=== PATIENT | female | born 1950 | race Caucasian/White ===

== ENCOUNTER 2020-11-10 05:36 | Day surgery (SDC) | payer MEDICARE ==
[2020-11-03 15:11] VITALS: BMI 25.1
[~2020-11-10 05:36] MED LIST: ACETAMINOPHEN TAB 500 MG TAB PO PRN; GABAPENTIN 300 MG CAP PO PRN; MELOXICAM 7.5 MG TAB PO PRN; TRANEXAMIC ACID 1,000 MG in SODIUM CHLORIDE 0.9% 100 ML IVPB PRN
[2020-11-10] MEDS ORDERED: DEXAMETHASONE SOD PHOSPHATE 4 MG/ML 1 ML VIAL IV ONE (06:01)
[2020-11-10] MEDS ORDERED: ONDANSETRON 4 MG/2 ML VIAL IVP ONE (06:01)
[2020-11-10] MEDS: LACTATED RINGERS 1,000 ML IV SCH (06:47)
[2020-11-10] MEDS ORDERED: fentaNYL (PF) 50 MCG/ML 2 ML AMP ONE (06:58)
[2020-11-10] MEDS ORDERED: LIDOCAINE 1% INJ 10MG/ML (20 ML MDV) ONE (06:58)
[2020-11-10] MEDS ORDERED: HEPARIN SODIUM,PORCINE 10,000 UNIT/ML 1 ML VIAL ONE (06:58)
[2020-11-10] MEDS ORDERED: HYDROmorphone (PF) 1 MG/ML ONE (06:58)
[2020-11-10] MEDS ORDERED: SUCCINYLCHOLINE CHLORIDE 100 MG/5 ML SYR IV ONE (06:58)
[2020-11-10] MEDS ORDERED: ONDANSETRON 4 MG/2 ML VIAL ONE (06:58)
[2020-11-10] MEDS ORDERED: SODIUM CHLORIDE 0.9% IRRIG 1,000 ML BTL IRRIGATION ONE (06:58)
[2020-11-10] MEDS ORDERED: MIDAZOLAM 2 MG/2 ML VIAL ONE (06:58)
[2020-11-10] MEDS ORDERED: PROPOFOL 10 MG/ML 20 ML VIAL IV ONE (06:58)
[2020-11-10] MEDS ORDERED: TRANEXAMIC ACID 1,000 MG/10 ML VIAL ONE (06:58)
[2020-11-10] MEDS ORDERED: SODIUM CHLORIDE 0.9% 100 ML BAG ONE (06:58)
[2020-11-10] MEDS ORDERED: HYDROmorphone 0.2 MG/1 ML SYRINGE IVP PRN (07:08)
[2020-11-10] MEDS ORDERED: NALOXONE 0.4 MG/ML 1 ML VIAL IV PRN (07:08)
[2020-11-10] MEDS ORDERED: HYDROmorphone 0.5 MG/0.5 ML SYRINGE IVP PRN ×2 (07:08)
[2020-11-10] MEDS ORDERED: MAGNESIUM HYDROXIDE 2,400 MG/10 ML CUP PO PRN (07:08)
[2020-11-10] MEDS ORDERED: ceFAZolin 3,000 MG in SODIUM CHLORIDE 0.9% IRRIGATIO 3,000 ML IRRIGATION ONE (07:15)
[2020-11-10] MEDS: ROPIVACAINE/EPI/CLONIDINE/KET 50 ML SYRINGE MISCELLANE PRN ×2 (07:27→08:11)
--- NOTE | 2020-11-10 08:34 | P.OP ---
Date of Procedure: 11/10/20 Preoperative Diagnosis: Severe osteoarthritis left hip Postoperative Diagnosis: Severe osteoarthritis left hip Procedure(s) Performed: Left total hip arthroplasty with a direct anterior approach Implants: [employer] Polarstem standard size 4 [employer] R3, 3 hole hemispherical acetabular shell, 52 mm [employer] Reflection 6.5 mm cancellus screw, 20 mm 2 [employer] R3, XLPE 20 acetabular liner [employer]hew Oxinium femoral head 36 m, +0 All components were press-fit. The articulation is Oxinium on polyethylene. Anesthesia: GETA Surgeon: Biju Pérez Fruit Grader Operator #1: Krys Welsh Estimated Blood Loss (ml): 200 (93 mL turn with Cell Saver) Pathology: other (Femoral head) Condition: stable Disposition: PACU Indications for Procedure: After failure of conservative treatment we discussed the surgical and nonsurgical treatment options at length. Patient wishes to proceed with a total hip arthroplasty with a direct anterior approach. Complications specific to this procedure were discussed at length, including but not limited to infection, leg length discrepancy, dislocation, nerve injury, and fracture. Covid-19 was also discussed at length with the patient, and they are aware of the current policies and procedures. The patient was given the option of delaying surgery, but they elect to proceed knowing these risks. Patient is aware of all these complications and informed consent was obtained Operative Findings: The operative findings are consistent with severe osteoarthritis of the left hip Description of Procedure: Patient was seen and evaluated in the preoperative area and the consent was reviewed. The operative site was marked with a skin marker. The patient was then brought to the operating room and given preoperative antibiotics intravenously. 1 g of Tranexamic acid was also given intravenously. A general anesthetic was administered by the anesthesia department. The patient was then placed on the [place] table with the bony prominences well-padded. The hip area was then prepped with a ChloraPrep solution and draped in the usual sterile fashion. A universal timeout was then performed, which confirmed the patient's name, surgical site, ALLERGIES, and procedure being performed on the consent. Next the incision site was located at 1 cm distal to the anterior superior iliac spine along the flexion crease of the hip. The skin and subcutaneous tissues were sharply incised. Incision was carefully dissected down to the fascia overlying the tensor fascia angela muscle. This fascia was then incised in line with the incision. Care was taken to stay laterally in order to avoid injuring the lateral femoral cutaneous nerve. Next, using blunt finger dissection, the tensor fascia angela muscle was dissected off its investing fascia. The muscle was then carefully retracted laterally with a cobra retractor over the lateral neck of the femur. Next, the circumflex vessels were identified and cauterized using the AquaMantis device. The anterior hip capsule was then exposed. The capsule was then opened and an inverted T fashion. Cobra retractors were then placed intracapsularly. The retractors were maintained intracapsular throughout the procedure. The proximal femur was then visualized. A small amount of traction was placed on the leg. The femoral neck was then osteotomized appropriate level above the lesser trochanter. A small wedge of bone was then removed from the remaining femoral head. Next, using a corkscrew the femoral head was removed from the acetabulum. On gross visual inspection, the femoral head had complete loss of articular cartilage and multiple periarticular osteophytes. The femoral head was then measured. Attention was then turned to the acetabulum. The acetabulum was exposed and any remaining labrum was excised. Sequential reaming of the acetabulum was performed using fluoroscopic guidance until there was a good bed of bleeding cancellus bone. When the appropriate size was reached, a trial was then placed. The position and fit of the trial was checked with fluoroscopy. The trial was then removed. Then, using fluoroscopic guidance, the final implant was impacted at 20 of anteversion and 40 of abduction, and fully seated in the acetabulum. 2 screws were then placed in the acetabulum. Again fluoroscopy was used to check position of the screws. Next, the liner was then impacted, with a 20 elevated liner located in the anterior superior quadrant. Component locking was confirmed. Attention was then directed to the femur. With the aid of the [place] table, the femur was externally rotated to approximately 130, extended, and adducted under the opposite leg. A side hook was then placed under the proximal femur, and the side hook elevator was used to elevate the proximal femur while releasing the capsule. Retractors were then placed. A capsular release was performed, as well as a release of the conjoined tendon, which afforded excellent visualization of the proximal femur. Next, a box osteotome was used to lateralize the proximal femur. A clearing hand was then used to locate the femoral canal. Sequential broaching was then performed with appropriate size which afforded excellent fixation in the proximal femur. A trial was then placed with appropriate head and neck, and the hip was gently reduced with the aid of the [place] table. Fluoroscopy was then used to check position of the components, as well as to ensure equal leg lengths. The hip was then gently dislocated and the trials were then removed. Final implants were then impacted and the hip was again reduced. Final fluoroscopic x-rays confirmed that the components were in anatomic position, as well as equal leg lengths. The hip was also taken through range of motion, and found to be stable. The hip was then copiously irrigated with antibiotic solution with pulsatile lavage. The hip was then irrigated with Irrisept solution. The soft tissues were then injected with a ropivacaine solution, which consisted of 246.25 mg of ropivacaine, 0.5 mg of epinephrine, 30 mg of Toradol, 80 g of clonidine, and 48.45 mL of sterile water, for a total of 100 mL of fluid injected. A second dose of 1 g of Tranexamic acid was also given intravenously. Any blood collected by Cell Saver was then returned to the patient at this time. The fascia was then closed with 2-0 strata fix suture. The subcutaneous tissue was closed with 3-0 Vicryl. The subcuticular tissue was closed with 3-0 strata fix suture. The skin was then closed with Exofin skin glue. After the glue and dried, and Optifoam silver impregnated dressing was applied. The patient was then transferred to the recovery room in stable condition. The operator assistant i cementing MANUELITO Mcrae was required due to the complexity of surgery, and the need for skilled real estate administrative assistant for positioning, draping, exposure, retraction, and closure of the wound.
--- NOTE | 2020-11-10 08:40 | FL ---
EXAMINATION TYPE: FL guidance operating room DATE OF EXAM: 11/10/2020 HISTORY: Fluoroscopy time 18 seconds of fluoroscopy provided. IMPRESSION: 1. Fluoroscopy time.
[2020-11-10] MEDS: HYDROmorphone 0.5 MG/0.5 ML SYRINGE IVP PRN ×2 (08:47→08:54)
[2020-11-10] MEDS ORDERED: HYDROcodone/APAP 7.5-325MG 1 EACH TAB PO PRN (08:47)
[2020-11-10] MEDS: fentaNYL (PF) 50 MCG/ML 2 ML AMP IVP ONE ×2 (09:05→09:11)
--- NOTE | 2020-11-10 09:43 | XR ---
EXAMINATION TYPE: XR Hip Limited LT DATE OF EXAM: 11/10/2020 COMPARISON: NONE HISTORY: Postop TECHNIQUE: One view submitted. FINDINGS: There is postsurgical change in near anatomic alignment. There is soft tissue edema and emphysema. H ypertrophic change of the acetabulum. IMPRESSION: 1. Postoperative change. Appears in near-anatomic alignment.
[2020-11-10] MEDS ORDERED: LACTATED RINGERS 1,000 ML IV ONE (13:53)
[2020-11-10] MEDS: ONDANSETRON 4 MG/2 ML VIAL IVP PRN (15:25)
--- NOTE | 2020-11-10 16:02 | P.PN ---
Progress Note - Text Progress Note Date: 11/10/20 Patient refused to be seen by me. She said that she does not think that a medicine consult is necessary. She said that she does not want to billed for services that she does not need.. I informed nursing staff and asked him to notify attending physician.
[2020-11-10] MEDS: SODIUM CHLORIDE 0.9% 1,000 ML IV SCH ×2 (19:09→19:56)
[2020-11-10] MEDS: ASPIRIN 325 MG TAB PO SCH (19:55)
[2020-11-10] MEDS ORDERED: SENNOSIDES-DOCUSATE SODIUM 1 EACH TAB PO SCH (21:00)
[2020-11-11] MEDS: ONDANSETRON 4 MG/2 ML VIAL IVP PRN (00:50)
[2020-11-11] MEDS: HYDROcodone/APAP 7.5-325MG 1 EACH TAB PO PRN ×2 (00:53→07:30)
[2020-11-11] MEDS: LACTATED RINGERS 1,000 ML IV SCH (04:19)
[2020-11-11] MEDS: ASPIRIN 325 MG TAB PO SCH (07:29)
[2020-11-11] MEDS ORDERED: PANTOPRAZOLE 40 MG TABLET PO SCH (07:30)
[2020-11-11 08:16] VITALS: BP 95/60; RESP 18; TEMP 97.4
[2020-11-11] MEDS ORDERED: MELOXICAM 7.5 MG TAB PO SCH (09:00)
--- NOTE | 2020-11-11 09:23 | P.DS ---
Providers Expected date of discharge: 11/11/20 Attending physician: Biju Pérez Primary care physician: Stated None - Discharge Diagnosis(es) (1) Osteoarthritis of left hip Current Visit: Yes Status: Acute (2) Status post total hip replacement, left Current Visit: Yes Status: Acute Hospital Course: This is a 70-year-old female with known history of degenerative arthritis of the left hip. The patient presented for evaluation as an outpatient. After discussion and consideration patient elects to proceed with total hip arthroplasty. The patient is seen preoperatively by Dr. Pérez and medically cleared for surgery by their primary care physician. Patient is admitted to [facility] on 11/10/2020 for total hip arthroplasty. The procedure is performed without complication or sequelae. The patient is doing well postoperatively. Labs and vital signs are stable on day of discharge. On day of discharge patient's hip incision is healing well. There is minimal erythema. There is no drainage noted at this time. There is minimal soft tissue swelling to the hip and thigh. Patient has full foot and ankle motion without difficulty or pain. Calf is soft and nontender to palpation. Neurovascular status to the left lower extremity is intact. Patient is discharged home in good condition. Opioid start talking form is reviewed and signed. Please see med rec for accurate list of home medications. Plan - Discharge Summary Discharge Rx Participant: Yes New Discharge Prescriptions: New Aspirin 325 mg PO BID #60 tab Gabapentin 300 mg PO BID 5 Days #10 cap Sennosides [Senokot] 2 tab PO DAILY PRN #60 tablet PRN Reason: Constipation Celecoxib [CeleBREX] 200 mg PO DAILY 5 Days #5 capsule HYDROcodone/APAP 7.5-325MG [[place] 7.5-325] 1 - 2 tab PO Q6H PRN #32 tab PRN Reason: Pain Ondansetron Odt [Zofran Odt] 1 tab PO Q8HR PRN #10 tab PRN Reason: Nausea No Action Meloxicam [Mobic] 7.5 mg PO DAILY Acetaminophen [Tylenol Arthritis] 650 mg PO DIRECTED PRN PRN Reason: Pain Multivitamins, Thera [Multivitamin (formulary)] 1 tab PO DAILY Glucos Sul 2Kcl/MSM/Chond/C/Mn [Glucosamine Chondroitin Cap] 1 each PO DAILY Cannabidiol (Cbd) [Epidiolex] 1 dose PO DIRECTED Omeprazole 20 mg PO AC-BRKFST Ginkgo Biloba (Unknown Dose) 1 tab PO DAILY Calcium 1 tab PO DAILY Antibiotic For Uti 1 dose PO DIRECTED Discharge Medication List Acetaminophen [Tylenol Arthritis] 650 mg PO DIRECTED PRN 11/03/20 [History] Calcium 1 tab PO DAILY 11/03/20 [History] Cannabidiol (Cbd) [Epidiolex] 1 dose PO DIRECTED 11/03/20 [History] Ginkgo Biloba (Unknown Dose) 1 tab PO DAILY 11/03/20 [History] Glucos Sul 2Kcl/MSM/Chond/C/Mn [Glucosamine Chondroitin Cap] 1 each PO DAILY 11/03/20 [History] Meloxicam [Mobic] 7.5 mg PO DAILY 11/03/20 [History] Multivitamins, Thera [Multivitamin (formulary)] 1 tab PO DAILY 11/03/20 [History] Omeprazole 20 mg PO AC-BRKFST 11/03/20 [History] Antibiotic For Uti 1 dose PO DIRECTED 11/06/20 [History] Aspirin 325 mg PO BID #60 tab 11/10/20 [Rx] Celecoxib [CeleBREX] 200 mg PO DAILY 5 Days #5 capsule 11/10/20 [Rx] Gabapentin 300 mg PO BID 5 Days #10 cap 11/10/20 [Rx] HYDROcodone/APAP 7.5-325MG [[place] 7.5-325] 1 - 2 tab PO Q6H PRN #32 tab 11/10/20 [Rx] Ondansetron Odt [Zofran Odt] 1 tab PO Q8HR PRN #10 tab 11/10/20 [Rx] Sennosides [Senokot] 2 tab PO DAILY PRN #60 tablet 11/10/20 [Rx] Follow up Appointment(s)/Referral(s): Biju Pérez DO [Doctor of Osteopathic Medicine] - 2 Weeks Activity/Diet/Wound Care/Special Instructions: Weightbearing as tolerated with walker. Leave dressing intact. Dressing may be removed by home care nurse or by patient in 10 days. May shower with dressing on. If dressing become saturated, please remove. Please take aspirin 325mg twice daily for 30 days to prevent blood clots. Recommend use of compression stockings daily until follow up to help prevent swelling and blood clots. May remove at night before sleeping. Please follow-up with [facility] in 2 weeks and call with any questions or concerns, . Discharge Disposition: HOME WITH HOME HEALTH SERVICES
[2020-11-11 09:31] VITALS: PULSE 66
[2020-11-11 11:41] LABS: Basophils # (A) 0.01 X 10*3/uL (0.00-0.10); Basophils % (A) 0.1 %; Eosinophils # (A) 0.02 X 10*3/uL (0.04-0.35); Eosinophils % (A) 0.2 %; HCT 31.4 % (37.2-46.3); HGB 9.9 g/dL (12.0-15.0); Lymphocytes # (A) 1.57 X 10*3/uL (0.90-5.00); Lymphocytes % (A) 16.2 %; MCH 29.1 pg (27.0-32.0); MCHC 31.5 g/dL (32.0-37.0); MCV 92.4 fL (80.0-97.0); Mean Platelet Volume 12.7 fL (9.5-12.2); Monocytes # (A) 0.78 X 10*3/uL (0.20-1.00); Monocytes % (A) 8.1 %; Neutrophils # (A) 7.27 X 10*3/uL (1.80-7.70); Neutrophils % (A) 75.1 %; Platelet Count 137 X 10*3/uL (140-440); RDW 12.8 % (11.5-14.5); WBC 9.68 X 10*3/uL (4.50-10.00)
[2020-11-11 12:24] LABS: African American GFR (CKD) 86.6 (60.0-200.0); BUN/Creat Ratio 18.75 Ratio (12.00-20.00); Calcium 8.6 mg/dL (8.7-10.3); Non-African American GFR(CKD) 74.7 (60.0-200.0); Potassium 4.9 mmol/L (3.5-5.5)
== END 2020-11-11 13:20 | disposition home health service (06) ==
LOC: OR 05:36 → 4SSUR 13:45 → OR 11-11 13:20
PROVIDERS: ATTEND Orthopaedic Surgery
DX: M16.12 Unilateral primary osteoarthritis, left hip (principal); I10 Essential (primary) hypertension; F12.90 Cannabis use, unspecified, uncomplicated; Z91.048 Other nonmedicinal substance allergy status; Z20.822 Contact with and (suspected) exposure to COVID-19; Z88.0 Allergy status to penicillin
CPT/HCPCS: 97110; 97161; 97165; 86891; 86900; 86901; 80048; 85025; 86850; 88300; 87635; 73501; 27130; P9022; C1776; J2250; J1644; J1100; J0690 ×2; J2405 ×2; J2001; J3010; J1170 ×3; J0330; J2704

== ENCOUNTER → 2022-06-04 | Outpatient (CLI) | payer MEDICARE ==
[2022-06-04 16:33] LABS: INR 0.9 (<1.2); Partial Thromboplastin Time 25.6 sec (22.0-30.0); Prothrombin Time 10.1 sec (9.0-12.0)
[2022-06-04 23:20] LABS: HCT 47.6 % (37.2-46.3); HGB 15.3 g/dL (12.0-15.0); MCH 29.4 pg (27.0-32.0); MCHC 32.1 g/dL (32.0-37.0); MCV 91.5 fL (80.0-97.0); Mean Platelet Volume 11.7 fL (9.5-12.2); NRBC Per 100 WBC 0 /100 WBCS (0.0-0.0); Platelet Count 209 X 10*3/uL (140-440); WBC 6.39 X 10*3/uL (4.50-10.00)
[2022-06-04 23:35] LABS: Albumin 4.4 g/dL (3.8-4.9); Albumin/Globulin Ratio 1.47 (1.60-3.17); Anion Gap 10.8 mmol/L (10.00-18.00); BUN/Creat Ratio 20.44 Ratio (12.00-20.00); Blood Urea Nitrogen 18.4 mg/dL (9.0-27.0); Calcium 10.1 mg/dL (8.7-10.3); Carbon Dioxide 27.2 mmol/L (20.0-27.5); Non-African American GFR(CKD) 63.9 (60.0-200.0); Potassium 4.6 mmol/L (3.5-5.5); Total Bilirubin 0.4 mg/dL (0.30-1.20); Total Protein 7.4 g/dL (6.2-8.2)
[2022-06-05 01:59] LABS: Appearance,Urine Clear (Clear); Bilirubin,Urine Negative (Negative); Blood,Urine Negative (Negative); Color,Urine Yellow (Yellow); Ketones,Urine Negative (Negative); Nitrite,Urine Negative (Negative); Specific Gravity,Urine 1.013 (1.001-1.030)
[2022-06-05 02:07] LABS: Bacteria,Urine None Seen /HPF (None Seen)
== END | disposition home or self-care (01) ==
LOC: LABPAT 14:39
PROVIDERS: ATTEND Orthopaedic Surgery
DX: Z01.812 Encounter for preprocedural laboratory examination (principal); M16.11 Unilateral primary osteoarthritis, right hip
CPT/HCPCS: 36415; 80053; 81001; 85027; 85610; 85730; 87070

== ENCOUNTER 2022-06-08 05:38 | Observation (INO) | payer MEDICARE ==
[~2022-06-08 05:38] MED LIST changes: -TRANEXAMIC ACID 1,000 MG in SODIUM CHLORIDE 0.9% 100 ML IVPB PRN; +TRANEXAMIC ACID IN NACL,ISO-OS 1,000 MG in SALINE 1 100ML.BAG IVPB PRN
[2022-06-08] MEDS ORDERED: DEXAMETHASONE SOD PHOSPHATE 4 MG/ML 1 ML VIAL IV ONE (05:43)
[2022-06-08] MEDS ORDERED: ONDANSETRON 4 MG/2 ML VIAL IVP ONE (05:43)
[2022-06-08] MEDS: LACTATED RINGERS 1,000 ML IV SCH ×2 (05:58→10:56)
[2022-06-08] MEDS ORDERED: MIDAZOLAM 2 MG/2 ML VIAL ONE (06:54)
[2022-06-08] MEDS ORDERED: LIDOCAINE 2% INJ 20 MG/ML (2 ML VIAL) ONE (06:54)
[2022-06-08] MEDS ORDERED: HYDROmorphone (PF) 1 MG/ML ONE (06:54)
[2022-06-08] MEDS ORDERED: SUCCINYLCHOLINE CHLORIDE 200 MG/10 ML VIAL IV ONE (06:54)
[2022-06-08] MEDS ORDERED: TRANEXAMIC ACID IN NACL,ISO-OS 1,000 MG/100 ML BAG ONE (06:54)
[2022-06-08] MEDS ORDERED: PROPOFOL 10 MG/ML 20 ML VIAL IV ONE (06:54)
[2022-06-08] MEDS ORDERED: fentaNYL (PF) 50 MCG/ML 2 ML AMP ONE (06:54)
[2022-06-08] MEDS ORDERED: ceFAZolin 1,000 MG in SODIUM CHLORIDE 0.9% 1,000 ML IRRIGATION ONE (06:58)
[2022-06-08] MEDS ORDERED: ROPIVACAINE 5 MG/ML 30 ML VIAL MISCELLANE ONE ×2 (07:28→08:05)
--- NOTE | 2022-06-08 08:16 | P.OP ---
Date of Procedure: 06/08/22 Preoperative Diagnosis: Severe osteoarthritis right hip Postoperative Diagnosis: Severe osteoarthritis right hip Procedure(s) Performed: Total hip arthroplasty with a direct anterior approach Implants: [employer] Polarstem standard size 3 [employer] R3, 3 hole hemispherical acetabular shell, 52 mm [employer]hew Reflection 6.5 mm cancellus screw, 20 mm, 25 mm [employer]hew R3, XLPE 20 acetabular liner [employer]hew Oxinium femoral head 36 m, +4 All components were press-fit. The articulation is Oxinium on polyethylene. Anesthesia: GETA Surgeon: Biju Pérez Hardware Engineering Manager #1: Krys Welsh Estimated Blood Loss (ml): 250 Pathology: other (Femoral head) Condition: stable Disposition: PACU Indications for Procedure: After failure of conservative treatment we discussed the surgical and nonsurgical treatment options at length. Patient wishes to proceed with a total hip arthroplasty with a direct anterior approach. Complications specific to this procedure were discussed at length, including but not limited to infection, leg length discrepancy, dislocation, nerve injury, and fracture. Covid-19 was also discussed at length with the patient, and they are aware of the current policies and procedures. The patient was given the option of delaying surgery, but they elect to proceed knowing these risks. Patient is aware of all these complications and informed consent was obtained Operative Findings: The operative findings are consistent with severe osteoarthritis of the right hip Description of Procedure: Patient was seen and evaluated in the preoperative area and the consent was reviewed. The operative site was marked with a skin marker. The patient was then brought to the operating room and given preoperative antibiotics i ntravenously. 1 g of Tranexamic acid was also given intravenously. A general anesthetic was administered by the anesthesia department. The patient was then placed on the [place] table with the bony prominences well-padded. The hip area was then prepped with a ChloraPrep solution and draped in the usual sterile fashion. A universal timeout was then performed, which confirmed the patient's name, surgical site, ALLERGIES, and procedure being performed on the consent. Next the incision site was located at the flexion crease of the right hip 2 cm distal to the anterior superior iliac spine. The skin and subcutaneous tissues were sharply incised. Incision was carefully dissected down to the fascia overlying the tensor fascia angela muscle. This fascia was then incised in line with the incision. Care was taken to stay laterally in order to avoid injuring the lateral femoral cutaneous nerve. Next, using blunt finger dissection, the tensor fascia angela muscle was dissected off its investing fascia. The muscle was then carefully retracted laterally with a cobra retractor over the lateral neck of the femur. Next, the circumflex vessels were identified and cauterized using the AquaMantis device. The anterior hip capsule was then exposed. The capsule was then opened and an inverted T fashion. Cobra retractors were then placed intracapsularly. The retractors were maintained intracapsular throughout the procedure. The proximal femur was then visualized. Fluoroscopic x-rays were then taken in order to evaluate the preoperative leg lengths. A small amount of traction was placed on the leg. The femoral neck was then osteotomized at the appropriate level above the lesser trochanter. A small wedge of bone was then removed from the remaining femoral head. Next, using a corkscrew the femoral head was removed from the acetabulum. On gross visual inspection, the femoral head had complete loss of articular cartilage and multiple periarticular osteophytes. The femoral head was then measured. Attention was then turned to the acetabulum. The acetabulum was exposed and any remaining labrum was excised. Sequential reaming of the acetabulum was performed using fluoroscopic guidance until there was a good bed of bleeding cancellus bone. When the appropriate size was reached, a trial was then placed. The position and fit of the trial was checked with fluoroscopy. The trial was then removed. Then, using fluoroscopic guidance, the final implant was impacted at 20 of anteversion and 40 of abduction, and fully seated in the acetabulum. 2 screws were then placed in the acetabulum. Again fluoroscopy was used to check position of the screws. Next, the liner was then impacted, with a 20 elevated liner located in the anterior superior quadrant. Component locking was confirmed. Attention was then directed to the femur. With the aid of the [place] table, the femur was externally rotated to approximately 130, extended, and adducted under the opposite leg. A side hook was then placed under the proximal femur, and the side hook elevator was used to elevate the proximal femur while releasing the capsule. Retractors were then placed. A capsular release was performed, as well as a release of the conjoined tendon, which afforded excellent visualization of the proximal femur. Next, a box osteotome was used to lateralize the proximal femur. A handbag stitcher was then used to locate the femoral canal. Sequential broaching was then performed with appropriate size which afforded excellent fixation in the proximal femur. A trial was then placed with appropriate head and neck, and the hip was gently reduced with the aid of the [place] table. Fluoroscopy was then used to check position of the components, as well as to evaluate the leg lengths and offset. The leg lengths and offset were measured as closely as possible to ensure stability of the hip. The hip was then gently dislocated and the trials were then removed. Final implants were then impacted and the hip was again reduced. Final fluoroscopic x-rays confirmed that the components were in anatomic position. The leg lengths and offset were measured and were found to coincide with the trial measurements. The hip was also taken through range of motion, and found to be stable. The hip was then copiously irrigated with antibiotic solution with pulsatile lavage. The hip was then irrigated with Irrisept solution. The soft tissues were then injected with a ropivacaine solution. A second dose of 1 g of Tranexamic acid was also given intravenously. The fascia was then closed with 2-0 strata fix suture. The subcutaneous tissue was closed with 3-0 Vicryl. The subcuticular tissue was closed with 3-0 strata fix suture. The skin was then closed with Exofin skin glue. After the glue and dried, and Optifoam silver impregnated dressing was applied. The patient was then transferred to the recovery room in stable condition. The assistant manager pt MANUELITO Mcrae was required due to the complexity of surgery, and the need for skilled surgical instrument technician for positioning, draping, exposure, retraction, and closure of the wound.
[2022-06-08] MEDS ORDERED: LACTATED RINGERS 1,000 ML IV ONE (08:19)
[2022-06-08] MEDS: HYDROmorphone 0.5 MG/0.5 ML SYRINGE IVP PRN ×2 (08:48→09:00)
--- NOTE | 2022-06-08 09:02 | XR ---
Intraoperative/procedural fluoroscopic services were provided for right total hip arthroplasty. Hardw are appears intact with appropriate alignment. Total fluoroscopy time is 27 seconds with a total of 3 submitted images to PACS. Please see the operative note for further details.
[2022-06-08] MEDS ORDERED: HYDROmorphone 0.5 MG/0.5 ML SYRINGE IVP PRN ×3 (09:04)
[2022-06-08] MEDS ORDERED: MAGNESIUM HYDROXIDE 2,400 MG/10 ML CUP PO PRN (09:04)
[2022-06-08] MEDS ORDERED: NALOXONE 0.4 MG/ML 1 ML VIAL IV PRN (09:04)
--- NOTE | 2022-06-08 09:31 | XR ---
EXAMINATION TYPE: XR Hip Limited RT DATE OF EXAM: 06/08/2022 9:27 AM INDICATION: Patient age:Female; 72 years old; Reason for study: Status post hip surgery, assess surgical alignment; [facility]. COMPARISON: 06/08/2022. TECHNIQUE: The right hip was examined in frontal projection. FINDINGS: Post surgical changes from total right hip arthroplasty. Hardware appears intact with appro priate alignment. No acute fracture. There is associated soft tissue gas and edema. IMPRESSION: Postsurgical changes from total right hip arthroplasty. Hardware appears intact with appropriate alig nment.
[2022-06-08] MEDS: SODIUM CHLORIDE 0.9% 1,000 ML IV SCH (13:17)
[2022-06-08] MEDS: HYDROcodone/APAP 7.5-325MG 1 EACH TAB PO PRN ×2 (15:18→21:03)
--- NOTE | 2022-06-08 15:57 | P.PN ---
Progress Note - Text Progress Note Date: 06/08/22 Patient refusing medical consultation.
[2022-06-08] MEDS: SENNOSIDES-DOCUSATE SODIUM 1 EACH TAB PO SCH (21:03)
[2022-06-08] MEDS: ASPIRIN 325 MG TAB PO SCH (21:03)
[2022-06-09] MEDS: SODIUM CHLORIDE 0.9% 1,000 ML IV SCH ×2 (01:34→13:40)
[2022-06-09] MEDS: HYDROcodone/APAP 7.5-325MG 1 EACH TAB PO PRN ×3 (05:55→20:59)
[2022-06-09] MEDS: ONDANSETRON 4 MG/2 ML VIAL IVP PRN (05:55)
[2022-06-09] MEDS: ASPIRIN 325 MG TAB PO SCH ×2 (08:38→20:02)
--- NOTE | 2022-06-09 09:57 | P.PN ---
Subjective Progress Note Date: 06/09/22 Principal diagnosis: Status post right total hip arthroplasty This is a 72 year-old female post right total hip arthroplasty. This is post-op day 1. The patient was evaluated in the recliner chair at the bedside today. She is very nauseated this morning and is vomiting. The patient denies abdominal pain, shortness of breath, and chest pain this morning. She states her pain is controlled at this time. The patient has been up with physical therapy. Objective - Vital Signs Vital signs: Vital Signs Temp 98.0 F 06/09/22 07:40 Pulse 70 06/09/22 07:40 Resp 13 06/09/22 07:40 BP 95/60 06/09/22 07:40 Pulse Ox 98 06/09/22 07:40 FiO2 Intake & Output 06/08/22 06/09/22 06/09/22 18:59 06:59 18:59 Intake Total 1100 Output Total 250 Balance 850 Weight 82.6 kg Intake: IV 1100 Output: Estimated Blood Loss 250 Other: Voiding Method Toilet # Voids 1 3 - Exam The patient does not appear in acute distress. Alert and orientated x3. Dressing is clean dry and intact. Incision appears fine with no erythema or active drainage. Calf is soft and nontender. Good foot and ankle motion without difficulty. Sensation and circulatory status is intact. Assessment and Plan (1) Primary osteoarthritis of right hip Current Visit: Yes Status: Acute Code(s): M16.11 - UNILATERAL PRIMARY OSTEOARTHRITIS, RIGHT HIP SNOMED Code(s): 983202065326130 (2) Status post total hip replacement, right Current Visit: Yes Status: Acute Code(s): Z96.641 - PRESENCE OF RIGHT ARTIFICIAL HIP JOINT SNOMED Code(s): 515471955946 Plan: 1. Continue pain control 2. Continue Zofran and compazine has been ordered. 3. Anticoagulation with Aspirin 4. Continue physical therapy and ambulation 5. Anticipate discharge home in the next 1-2 days.
[2022-06-09] MEDS: PROCHLORPERAZINE INJ 10 MG/2 ML VIAL IVP PRN ×2 (10:54→20:17)
[2022-06-09 11:57] LABS: Basophils # (A) 0.01 X 10*3/uL (0.00-0.10); Basophils % (A) 0.1 %; Eosinophils # (A) 0.02 X 10*3/uL (0.04-0.35); Eosinophils % (A) 0.2 %; HCT 30.6 % (37.2-46.3); HGB 10.2 g/dL (12.0-15.0); Immature Grans, Automated 0.3 %; Lymphocytes # (A) 1.37 X 10*3/uL (0.90-5.00); Lymphocytes % (A) 14.8 %; MCHC 33.3 g/dL (32.0-37.0); Mean Platelet Volume 11.4 fL (9.5-12.2); Monocytes # (A) 0.84 X 10*3/uL (0.20-1.00); Monocytes % (A) 9.1 %; NRBC Per 100 WBC 0 /100 WBCS (0.0-0.0); Neutrophils # (A) 6.97 X 10*3/uL (1.80-7.70); Neutrophils % (A) 75.5 %; Platelet Count 138 X 10*3/uL (140-440); RDW 12.9 % (11.5-14.5); WBC 9.24 X 10*3/uL (4.50-10.00)
[2022-06-09] MEDS: SENNOSIDES-DOCUSATE SODIUM 1 EACH TAB PO SCH (20:02)
[2022-06-10 08:19] VITALS: BP 111/66; PULSE 120; RESP 16; TEMP 98.3
[2022-06-10] MEDS: ONDANSETRON 4 MG/2 ML VIAL IVP PRN (09:37)
[2022-06-10] MEDS: HYDROcodone/APAP 7.5-325MG 1 EACH TAB PO PRN (09:37)
[2022-06-10] MEDS: ASPIRIN 325 MG TAB PO SCH (09:38)
--- NOTE | 2022-06-10 10:10 | P.DS ---
Providers Date of admission: 06/09/22 07:01 Expected date of discharge: 06/10/22 Attending physician: Biju Pérez Primary care physician: Rafael Martinez, DO - Discharge Diagnosis(es) (1) Primary osteoarthritis of right hip Current Visit: Yes Status: Acute (2) Status post total hip replacement, right Current Visit: Yes Status: Acute Hospital Course: This is a 72-year-old female with known history of degenerative arthritis of the right hip. The patient presented for evaluation as an outpatient. After discussion and consideration patient elects to proceed with total hip arthroplasty. The patient is seen preoperatively by Dr. Pérez and medically cleared for surgery by their primary care physician. Patient is admitted to [facility] on 06/08/2022 for total hip arthroplasty. The procedure is performed without complication or sequelae. The patient is doing well postoperatively. Labs and vital signs are stable on day of discharge. On day of discharge patient's hip incision is healing well. There is minimal erythema. There is no drainage noted at this time. There is minimal soft tissue swelling to the hip and thigh. Patient has full foot and ankle motion without difficulty or pain. Calf is soft and nontender to palpation. Neuro vascular status to the right lower extremity is intact. Patient is discharged home in good condition. Please see med rec for accurate list of home medications. Plan - Discharge Summary Discharge Rx Participant: Yes New Discharge Prescriptions: New Aspirin 325 mg PO BID #60 tab HYDROcodone/APAP 7.5-325MG [[place] 7.5-325] 1 - 2 tab PO Q6H PRN #32 tab PRN Reason: Pain Sennosides [Senokot] 2 tab PO DAILY PRN #60 tablet PRN Reason: Constipation Ondansetron Odt [Zofran Odt] 1 tab PO Q8HR PRN #10 tab PRN Reason: Nausea No Action Meloxicam [Mobic] 7.5 mg PO DAILY Multivitamins, Thera [Multivitamin (formulary)] 1 tab PO DAILY Cannabidiol (Cbd) [Epidiolex] 1 dose TOPICAL DIRECTED Ginkgo Biloba [place] Extract [Ginkgo Biloba] 125 mg PO DAILY Calcium Carbonate [Calcium] 600 mg PO DAILY Acetaminophen [Tylenol Extra Strength] 500 mg PO Q6H PRN PRN Reason: Pain Discharge Medication List Calcium Carbonate [Calcium] 600 mg PO DAILY 11/03/20 [History] Cannabidiol (Cbd) [Epidiolex] 1 dose TOPICAL DIRECTED 11/03/20 [History] Ginkgo Biloba [place] Extract [Ginkgo Biloba] 125 mg PO DAILY 11/03/20 [History] Meloxicam [Mobic] 7.5 mg PO DAILY 11/03/20 [History] Multivitamins, Thera [Multivitamin (formulary)] 1 tab PO DAILY 11/03/20 [History] Acetaminophen [Tylenol Extra Strength] 500 mg PO Q6H PRN 06/03/22 [History] Aspirin 325 mg PO BID #60 tab 06/08/22 [Rx] HYDROcodone/APAP 7.5-325MG [[place] 7.5-325] 1 - 2 tab PO Q6H PRN #32 tab 06/08/22 [Rx] Sennosides [Senokot] 2 tab PO DAILY PRN #60 tablet 06/08/22 [Rx] Ondansetron Odt [Zofran Odt] 1 tab PO Q8HR PRN #10 tab 06/10/22 [Rx] Follow up Appointment(s)/Referral(s): Rafael Martinez DO [Primary Care Provider] - 1 Week [facility], [NON-STAFF] - As Needed Biju Pérez DO [Doctor of Osteopathic Medicine] - 06/18/22 1:00 pm (With [facility]) Activity/Diet/Wound Care/Special Instructions: Weightbearing as tolerated with walker. Leave dressing intact. Dressing may be removed by home care nurse or by patient in 7 days. Then change dressing twice daily until follow up. May shower with initial dressing intact and after removal. If dressing become saturated, please remove. Please take aspirin 325mg twice daily for 30 days to prevent blood clots. Recommend use of compression stockings daily until follow up to help prevent swelling and blood clots. May remove at night before sleeping. Please follow-up with [facility] in 2 weeks and call with any questions or concerns, . Discharge Disposition: HOME WITH HOME HEALTH SERVICES
== END 2022-06-10 13:06 | disposition home health service (06) ==
LOC: OR 05:38 → 4SSUR 08:37 → OR 06-09 07:01
PROVIDERS: ADMIT Orthopaedic Surgery; ATTEND Orthopaedic Surgery
DX: M16.11 Unilateral primary osteoarthritis, right hip (principal); M25.751 Osteophyte, right hip; R11.2 Nausea with vomiting, unspecified; M48.00 Spinal stenosis, site unspecified; R20.0 Anesthesia of skin; H91.90 Unspecified hearing loss, unspecified ear; I12.9 Hypertensive chronic kidney disease with stage 1 through stage 4 chronic kidney disease, or unspecified chronic kidney disease; N18.31 Chronic kidney disease, stage 3a; R73.03 Prediabetes; Z97.3 Presence of spectacles and contact lenses; R26.81 Unsteadiness on feet; Z96.642 Presence of left artificial hip joint; Z98.890 Other specified postprocedural states; Z79.1 Long term (current) use of non-steroidal anti-inflammatories (NSAID); Z79.899 Other long term (current) drug therapy; Z88.0 Allergy status to penicillin; Z88.8 Allergy status to other drugs, medicaments and biological substances; Z88.2 Allergy status to sulfonamides
CPT/HCPCS: 97116; 97161; 97530; 97535 ×2; 97166; 86900; 86901; 85025; 86850; 88300; 73501; 27130; G0378 ×2; C1776; J2250; J0330; J0780; J1100; J0690 ×2; J2405 ×3; J3010; J1170 ×3; J2795; J2704; J2001